=== PATIENT | male | born 1990 | race Caucasian/White ===

== ENCOUNTER 2022-02-02 10:28 | Emergency (ER) | payer SELFPAY ==
[~2022-02-02] VITALS: Ht 182.9 cm; Wt 108.9 kg
[2022-02-02] MEDS ORDERED: LORazepam 2MG/ML-1ML VIAL ONE ×2 (10:39→11:27)
[2022-02-02] MEDS ORDERED: SODIUM CHLORIDE 0.9% 500 ML IVB ONE (12:30)
[2022-02-02] MEDS ORDERED: SODIUM CHLORIDE 0.9% 1,000 ML IV ONE (12:30)
[2022-02-02 14:02] LABS: Albumin 3.1 g/dL (3.4-5.0); Anion Gap 8 (5-15); Blood Urea Nitrogen 16 mg/dL (7-18); Calcium 7.1 mg/dL (8.5-10.1); Carbon Dioxide 19 mmol/L (21-32); Chloride 113 mmol/L (98-107); GFR African American 190 mL/min; GFR Non-African American 157 mL/min; Glucose 92 mg/dL (74-106); Magnesium 1.8 mg/dL (1.6-2.6); Potassium 4.7 mmol/L (3.5-5.1); Sodium 140 mmol/L (136-145)
[2022-02-02 14:10] LABS: Alanine Aminotransferase 27 U/L (16-61); Alkaline Phosphatase 75 U/L (45-117); Aspartate Aminotransferase 35 U/L (15-37); Bilirubin, Total 0.2 mg/dL (0.2-1.0); Blood Alcohol < 3.0 mg/dL (0-5); Total Protein 5.9 g/dL (6.4-8.2)
[2022-02-02] MEDS ORDERED: LORazepam 2MG/ML-1ML VIAL IM ONE ×2 (15:15)
[2022-02-02 15:40] LABS: Basophils # (auto) 0.1 10 ^3/uL (0-0.2); Basophils % (auto) 0.3 % (0.0-2.0); Eosinophils # (auto) 0 10 ^3/uL (0-0.8); Eosinophils % (auto) 0.1 % (0.0-7.0); Hematocrit 45.8 % (41.0-53.0); Hemoglobin 15.4 g/dL (13.5-17.5); Lymphocytes # (auto) 0.7 10 ^3/uL (0.4-5.4); Lymphocytes % (auto) 4.7 % (10.0-50.0); Mean Corpuscular Hemoglobin 31.2 pg (28.0-32.0); Mean Corpuscular Hgb Conc. 33.6 g/dL (32.0-36.0); Mean Corpuscular Volume 92.7 fL (80.0-100.0); Monocytes # (auto) 0.4 10 ^3/uL (0-1.3); Monocytes % (auto) 2.9 % (0.0-12.0); Neutrophils # (auto) 13.4 10 ^3/uL (1.6-8.6); Nucleated Red Blood Cells % 0.1 %; Red Blood Cells 4.93 10^6/uL (4.5-5.90); Red Cell Distribution Width 12.2 % (11.8-14.3); White Blood Cell 14.6 10^3/uL (4.4-10.8)
[2022-02-02] MEDS ORDERED: ACETAMINOPHEN 325 MG TAB PO ONE (20:45)
[2022-02-02 21:51] LABS: Alcohol, Urine < 3.0 mg/dL (0-10); Amphetamine Screen, Urine POSITIVE (NEGATIVE); Barbiturate Scree,Urine NEGATIVE (NEGATIVE); Benzodiazephine Screen, Urine NEGATIVE (NEGATIVE); Cannabinoid Screen, Urine NEGATIVE (NEGATIVE); Cocaine Screen, Urine NEGATIVE (NEGATIVE); Opiate Scree,Urine NEGATIVE (NEGATIVE); Phencyclidine Screen, Urine NEGATIVE (NEGATIVE)
[2022-02-02 22:08] LABS: Urine Bacteria NONE SEEN /hpf (None Seen); Urine Blood Negative /uL (Negative); Urine Specific Gravity 1.024 (1.001-1.035); Urine WBC 1 /hpf (0 - 3)
[2022-02-03 10:00] VITALS: BP 113/72
[2022-02-03] MEDS ORDERED: KEP500T PO (10:05)
== END 2022-02-03 11:34 | disposition home or self-care (01) ==
LOC: EDBD 10:28 → ER 10:28
DX: G40.802 Other epilepsy, not intractable, without status epilepticus (principal); Z89.611 Acquired absence of right leg above knee
CPT/HCPCS: 36415; 70450; 71045; 80053; 80307; 80320; 81001; 83735; 84443; 85025; 93005; 96365; 96372; 99285; J1953; J2060; J7030; J7060

== ENCOUNTER 2022-04-01 15:04 | Emergency (ER) | payer SELFPAY ==
[~2022-04-01] VITALS: Ht 182.9 cm; Wt 92.8 kg
[~2022-04-01 15:04] MED LIST: KEP500T PO
[2022-04-01 21:13] VITALS: BP 129/82
[2022-04-01] MEDS ORDERED: KEP500T PO (21:18)
== END 2022-04-01 21:22 | disposition home or self-care (01) ==
LOC: ER 15:06
DX: R56.9 Unspecified convulsions (principal); Z76.0 Encounter for issue of repeat prescription

== ENCOUNTER 2022-05-06 15:02 | Emergency (ER) | payer MEDICAID ==
[~2022-05-06] VITALS: Ht 185.4 cm; Wt 200.0 kg
[2022-05-06] MEDS ORDERED: KEP500T PO (15:19)
[2022-05-06 16:00] VITALS: BP 147/87
== END 2022-05-06 15:24 | disposition home or self-care (01) ==
LOC: ER 15:02
DX: G40.909 Epilepsy, unspecified, not intractable, without status epilepticus (principal); Z76.0 Encounter for issue of repeat prescription

== ENCOUNTER 2022-08-07 15:00 | Emergency (ER) | payer MEDICAID ==
[~2022-08-07] VITALS: Ht 177.8 cm; Wt 92.5 kg
[2022-08-07 17:14] VITALS: BP 141/85
[2022-08-07] MEDS ORDERED: LEVE500T32 PO (17:34)
== END 2022-08-07 17:44 | disposition home or self-care (01) ==
LOC: ER 15:00
DX: R56.9 Unspecified convulsions (principal); Z76.0 Encounter for issue of repeat prescription

== ENCOUNTER 2022-11-11 14:48 | Emergency (ER) | payer MEDICAID ==
[~2022-11-11] VITALS: Ht 182.9 cm; Wt 92.0 kg
[~2022-11-11 14:48] MED LIST changes: +LEVE500T32 PO
[2022-11-11] MEDS ORDERED: KEP500T PO (16:22)
[2022-11-11 19:35] VITALS: BP 141/78
== END 2022-11-11 19:48 | disposition home or self-care (01) ==
LOC: ER 14:48
DX: G40.909 Epilepsy, unspecified, not intractable, without status epilepticus (principal); Z76.0 Encounter for issue of repeat prescription; Z98.890 Other specified postprocedural states

== ENCOUNTER 2024-06-21 14:19 | Emergency (ER) | payer OTHER, MEDICAID ==
[~2024-06-21] VITALS: Ht 182.9 cm; Wt 68.1 kg
[~2024-06-21 14:19] MED LIST changes: -LEVE500T32 PO; +LEVE500T40 PO
[2024-06-21 15:46] LABS: Amphetamine Screen, Urine Neg (NEGATIVE); Barbiturate Scree,Urine Neg (NEGATIVE); Benzodiazephine Screen, Urine Neg (NEGATIVE); Cocaine Screen, Urine Neg (NEGATIVE)
[2024-06-21 15:47] LABS: Cannabinoid Screen, Urine Neg (NEGATIVE); Opiate Scree,Urine Neg (NEGATIVE); Phencyclidine Screen, Urine Neg (NEGATIVE)
[2024-06-21 15:47] LABS: Basophils # (auto) 0 10 ^3/uL (0-0.2); Basophils % (auto) 0.2 % (0.0-2.0); Eosinophils # (auto) 0.3 10 ^3/uL (0-0.8); Eosinophils % (auto) 2.2 % (0.0-7.0); Hematocrit 45.8 % (41.0-53.0); Lymphocytes # (auto) 1.4 10 ^3/uL (0.4-5.4); Lymphocytes % (auto) 12.3 % (10.0-50.0); Mean Corpuscular Hemoglobin 32.8 pg (28.0-32.0); Mean Corpuscular Hgb Conc. 34.9 g/dL (32.0-36.0); Mean Corpuscular Volume 94.1 fL (80.0-100.0); Monocytes # (auto) 0.7 10 ^3/uL (0-1.3); Monocytes % (auto) 5.8 % (0.0-12.0); Neutrophils % (auto) 79.5 % (37.0-80.0); Nucleated Red Blood Cells % 0.1 %; Platelet Count (auto) 226 10^3/uL (140-450); Red Blood Cells 4.87 10^6/uL (4.5-5.90); Red Cell Distribution Width 12.6 % (11.8-14.3); White Blood Cell 11.3 10^3/uL (4.4-10.8)
[2024-06-21 16:02] LABS: Chloride 108 mmol/L (98-107); Potassium 3.9 mmol/L (3.5-5.1); Sodium 140 mmol/L (136-145)
[2024-06-21 16:03] LABS: Anion Gap 3 (5-15); Carbon Dioxide 29 mmol/L (20-31)
[2024-06-21 16:04] LABS: Calcium 9.9 mg/dL (8.7-10.4)
[2024-06-21 16:08] LABS: Glucose 101 mg/dL (74-106)
[2024-06-21 16:09] LABS: BUN/Creatinine Ratio 16.3 (10.0-20.0); Blood Alcohol < 3.0 mg/dL (<10); Blood Urea Nitrogen 15 mg/dL (9-23)
--- NOTE | 2024-06-21 16:12 | ED.PDOC ---
History of Present Illness HPI Comments 33-year-old male who comes in with chief complaint of anxious and somewhat upset. The patient brought in by paramedics with three-point restraints. The [facility] The patient states that he got very upset with the [facility] and he got so upset that he actually wrapped a television cord around his neck. He had to be restrained by his staff and then 911 was called and the patient was transported to our facility. Chief Complaint: Suicidal Time Seen by MD: 14:26 Primary Care Provider: UNKNOWN Reviewed Notes: Nurses Notes (Davy), Artificial Leather Calender Operator Notes, Medications, Allergies Allergies: Coded Allergies: NO KNOWN ALLERGIES (Unverified , 02/02/22) Home Meds Active Scripts Levetiracetam (KEPPRA TABLET) 500 Mg Tb, 500 MG PO BID for 60 Days, #120 TAB Prov:HARDIK ABDIP 11/11/22 Levetiracetam (Keppra) 500 Mg Tab, 1 TAB PO BID, #120 TAB Prov:THALIA BARONE 08/07/22 Levetiracetam (KEPPRA TABLET) 500 Mg Tb, 500 MG PO BID for 30 Days, #60 TAB Prov:LOIDA ADAMS MD 05/06/22 Levetiracetam (KEPPRA TABLET) 500 Mg Tb, 500 MG PO BID for 30 Days, #60 TAB 0 Refills Prov:PRADIP CORBETT 04/01/22 Levetiracetam (KEPPRA TABLET) 500 Mg Tb, 500 MG PO BID for 30 Days, #60 TAB Prov:YARI DYER MD 02/03/22 Information Source: Patient, Emergency Med Personnel Mode of Arrival: EMS Severity: Mild Timing: Hours Duration: Since onset Prehospital treatment: Restraints Associated signs and symptoms The patient was suffered abrasions to the facial area and then also had three point restraints placed Past Medical History PAST MEDICAL HISTORY: Seizures Past Medical History (Other): Bipolar disorder Surgical History: AKA (Right AKA) Surgical History (Other): Multiple extremity surgeries Family History Family History: Unknown Social History Smoker: Cigarettes Alcohol: Occasionally Drugs: Marijuana Lives In: Home Constitutional: denies: chills, diaphoresis, fatigue, fever, malaise, sweats, weakness, others EENTM: denies: blurred vision, double vision, ear bleeding, ear discharge, ear drainage, ear pain, ear ringing, eye pain, eye redness, hearing loss, mouth pain, mouth swelling, nasal discharge, nose bleeding, nose congestion, nose pain, photophobia, tearing, throat pain, throat swelling, voice changes, others Respiratory: denies: cough, hemoptysis, orthopnea, SOB at rest, shortness of breath, SOB with excertion, stridor, wheezing, others Cardiovascular: denies: chest pain, dizzy spells, diaphoresis, Dyspnea on exertion, edema, irregular heart beat, left arm pain, lightheadedness, palpitations, PND, syncope, others Gastrointestinal: denies: abdomen distended, abdominal pain, blood streaked bowels, constipated, diarrhea, dysphagia, difficulty swallowing, hematemesis, melena, nausea, poor appetite, poor fluid intake, rectal bleeding, rectal pain, vomiting, others Genitourinary: denies: burning, dysuria, flank pain, frequency, hematuria, incontinence, penile discharge, penile sore, pain, testicle pain, testicle swelling, urgency, others Neurological: denies: dizziness, fainting, headache, left sided numbness, left sided weakness, numbness, paresthesia, pre-existing deficit, right sided numbness, right sided weakness, seizure, speech problems, tingling, tremors, weakness, others Musculoskeletal: denies: back pain, gout, joint pain, joint swelling, muscle pain, muscle stiffness, neck pain, others Integumetry: denies: bruises, change in color, change in hair/nails, dryness, laceration, lesions, lumps, rash, wounds, others Allergic/Immunocompromised: denies: Difficulty Healing, Frequent Infections, Hives, Itching, others Hematologic/Lymphatic: denies: anemia, blood clots, easy bleeding, easy bruising, swollen glands, others Endocrine: denies: excessive hunger, excessive sweating, excessive thirst, excessive urination, flushing, intolerance to cold, intolerance to heat, unexplained weight gain, unexplained weight loss, others Psychiatric: reports: anxiety, suicidal; denies: bipolar disorder, depression, hopeless, panic disorder, schizophrenia, sleepless, others Physical Exam General Appearance: Mild Distress HEENT: Normal ENT Inspection, Pharynx Normal, TMs Normal Neck: Full Range of Motion, Non-Tender, Normal, Normal Inspection Respiratory: Chest Non-Tender, Lungs Clear, No Accessory Muscle Use, No Respiratory Distress, Normal Breath Sounds Cardiovascular: No Edema, No JVD, No Murmur, No Gallop, Normal Peripheral Pulses, Regular Rate/Rhythm Breast Exam: Deferred Gastrointestinal: No Organomegaly, Non Tender, No Pulsatile Mass, Normal Bowel Sounds, Soft Genitalia: Deferred Pelvic: Deferred Rectal: Deferred Extremities: No calf tenderness, Normal capillary refill, No pedal edema, Other (The patient was right AKA) Musculoskeletal : Apperance: Normal Neurologic: Alert, information assurance analyst II-XII nml as Tested, No Motor Deficits, No Sensory Deficits, Other (The patient was somewhat anxious and states that he is suicidal) Cerebellar Function: Normal Reflexes: Normal Skin: Dry, Normal Color, Warm Lymphatic: No Adenopathy Was a procedure done? Was a procedure done?: No Differential Dx Considerations may include: Generalized weakness, electrolyte imbalance, dehydration, anxiety, bipolar disorder X-Ray, Labs, Meds, VS Vital Signs Date Time Temp Pulse Resp B/P (MAP) Pulse Ox O2 Delivery O2 Flow Rate FiO2 06/21/24 14:25 98.3 97 18 117/79 (92) 98 Lab Test 06/21/24 15:23 06/21/24 15:22 06/21/24 14:00 Range/Units White Blood Count 11.3 H 4.4-10.8 10^3/uL Red Blood Count 4.87 4.5-5.90 10^6/uL Hemoglobin 16.0 13.5-17.5 g/dL Hematocrit 45.8 41.0-53.0 % Mean Corpuscular Volume 94.1 80.0-100.0 fL Mean Corpuscular Hemoglobin 32.8 H 28.0-32.0 pg Mean Corpuscular Hemoglobin Concent 34.9 32.0-36.0 g/dL Red Cell Distribution Width 12.6 11.8-14.3 % Platelet Count 226 140-450 10^3/uL Mean Platelet Volume 7.6 6.9-10.8 fL Neutrophils (%) (Auto) 79.5 37.0-80.0 % Lymphocytes (%) (Auto) 12.3 10.0-50.0 % Monocytes (%) (Auto) 5.8 0.0-12.0 % Eosinophils (%) (Auto) 2.2 0.0-7.0 % Basophils (%) (Auto) 0.2 0.0-2.0 % Neutrophils # (Auto) 9.0 H 1.6-8.6 10 ^3/uL Lymphocytes # (Auto) 1.4 0.4-5.4 10 ^3/uL Monocytes # (Auto) 0.7 0-1.3 10 ^3/uL Eosinophils # (Auto) 0.3 0-0.8 10 ^3/uL Basophils # (Auto) 0 0-0.2 10 ^3/uL Nucleated Red Blood Cells 0.1 % Sodium Level 140 136-145 mmol/L Potassium Level 3.9 3.5-5.1 mmol/L Chloride Level 108 H 98-107 mmol/L Carbon Dioxide Level 29 20-31 mmol/L Anion Gap 3 L 5-15 Blood Urea Nitrogen 15 9-23 mg/dL Creatinine 0.92 0.700-1.30 mg/dL Glomerular Filtration Rate Calc 114 >90 mL/min BUN/Creatinine Ratio 16.3 10.0-20.0 Serum Glucose 101 74-106 mg/dL Calcium Level 9.9 8.7-10.4 mg/dL Plasma/Serum Blood Alcohol < 3.0 <10 mg/dL Urine Opiates Screen Neg NEGATIVE Urine Fentanyl Screen Neg NEGATIVE Urine Barbiturates Screen Neg NEGATIVE Urine Phencyclidine Screen Neg NEGATIVE Urine Amphetamines Screen Neg NEGATIVE Urine Benzodiazepines Screen Neg NEGATIVE Urine Cocaine Screen Neg NEGATIVE Urine Cannabinoids Screen Neg NEGATIVE Levetiracetam Level Pending The patient's CBC shows an elevated white blood cell count of 11.3 The rest of the CBC is within normal limits The chemistry panel is within normal limits. The urine tox is negative At this time, the patient was having a telemedicine psychiatry consult We did speak with Dr. Kay who is a psychiatrist The patient will be placed on a 5150 hold We will work on getting a bed for the patient to be transferred to at some point In the meantime, the patient was being given Zoloft 50 mg q.a.m.. The patient was also given Keppra 1000 mg p.o. for his seizures Time of 1ST Reevaluation: 17:54 Reevaluation 1ST: Unchanged Patient Education/Counseling: Diagnosis, Treatment, Prognosis Family Education/Counseling: No Family Present Departure 1 Departure Time of Disposition: 19:45 Impression: Primary Impression: Suicidal ideation Disposition: 30 STILL A PATIENT Condition: Fair Critical Care Note Critical Care Time?: No Stability Stability form required: No Heart Score Heart Score: Heart Score Response (Comments) Value History N/A 0 EKG N/A 0 Age N/A 0 Risk Factors N/A 0 Troponin N/A 0 Total 0 LOIDA ADMAS MD Jun 21, 2024 16:12
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
[2024-06-21] MEDS ORDERED: levETIRAcetam 500 MG TAB PO ONE (20:45)
[2024-06-21] MEDS: MELATONIN 5 MG TAB PO PRN (21:40)
[2024-06-21] MEDS: levETIRAcetam 500 MG TAB PO SCH (21:40)
[2024-06-21] MEDS: SERTRALINE HCL 50 MG TAB PO ONE (21:40)
[2024-06-22] MEDS: NICOTINE 7MG/24HR TOPICAL PATCH TD ONE (07:12)
[2024-06-22 10:21] VITALS: PULSE 75; RESP 16; O2SAT 98
[2024-06-23 07:30] VITALS: PULSE 75; RESP 16; O2SAT 98
[2024-06-23] MEDS: ONDANSETRON ODT 4 MG TAB PO ONE (07:59)
[2024-06-23] MEDS: METOCLOPRAMIDE HCL 10 MG TAB PO ONE (09:18)
[2024-06-23] MEDS: SODIUM CHLORIDE 0.9% 500 ML IV ONE (11:32)
[2024-06-23] MEDS: ONDANSETRON HCL 4 MG/2 ML VIAL IV ONE (11:32)
[2024-06-23] MEDS: ONDANSETRON HCL 4 MG/2 ML VIAL IM ONE (18:54)
[2024-06-23 19:30] VITALS: PULSE 112; RESP 16; O2SAT 97
[2024-06-24 07:30] VITALS: PULSE 112; RESP 16; O2SAT 97
[2024-06-24] MEDS: ONDANSETRON ODT 4 MG TAB PO ONE (09:32)
--- NOTE | 2024-06-24 22:11 | ED.PDOC ---
Departure 1 Departure Time of Disposition: 22:10 (Patient has I will hold a still pending placement. Patient is physically doing okay however patient appears a bit agitated and we will medicate the patient for sleep.) Impression: Primary Impression: Suicidal ideation Disposition: 30 STILL A PATIENT Condition: KAYLA Jj MD Jun 24, 2024 22:11
[2024-06-25] MEDS: levETIRAcetam 500 MG TAB ONE (08:00)
--- NOTE | 2024-06-25 09:19 | DVHINCON2 ---
Date of service: Jun 25, [address] Remy Gastelum Reason for Consultation Medication management and disposition. History of Present Illness Chief complaint: "I was tired". Interval history: This is a 33-year-old male who was seen for follow-up via telepsychiatry. Patient was not fully cooperative with the interview. Patient reported that he has been feeling depressed. He reported having trouble sleeping, energy level is low, has trouble concentrating and his appetite is decreased. He denied any current suicidal or homicidal ideation. He denied any auditory or visual hallucination. He denied any paranoia. Past Medical History As per history and physical. Past Surgical History As per history and physical. Allergies: Coded Allergies: NO KNOWN ALLERGIES (Unverified , 02/02/22) Home Meds Active Scripts Levetiracetam (KEPPRA TABLET) 500 Mg Tb, 500 MG PO BID for 60 Days, #120 TAB Prov:HARDIK ABDI [employer] E[employer] PAR[employer]GAL 11/11/22 Levetiracetam (Keppra) 500 Mg Tab, 1 TAB PO BID, #120 TAB Prov:THALIA BARONE PAC 08/07/22 Levetiracetam (KEPPRA TABLET) 500 Mg Tb, 500 MG PO BID for 30 Days, #60 TAB Prov:LOIDA ADAMS MD 05/06/22 Levetiracetam (KEPPRA TABLET) 500 Mg Tb, 500 MG PO BID for 30 Days, #60 TAB 0 Refills Prov:PRADIP CORBETT PA 04/01/22 Levetiracetam (KEPPRA TABLET) 500 Mg Tb, 500 MG PO BID for 30 Days, #60 TAB Prov:YARI DYER MD 02/03/22 Review of Systems Review of systems is negative except HPI. Vital Signs Vital Signs Date Time Temp Pulse Resp B/P (MAP) Pulse Ox O2 Delivery O2 Flow Rate FiO2 06/24/24 20:15 Room Air* 0 21 06/24/24 20:00 98.6 73 16 137/74 (95) 98 98.6 Physical Exam Mental status examination: This is a 33 year male who appears to be of his stated age. His grooming is fair. His eye contact is poor. His speech is soft and lacking spontaneity. He describes his mood as "tired" and his affect is constricted. He denied any current suicidal or homicidal ideation. He denied any auditory or visual hallucination. His thought processes disorganized with considerable thought blocking. He is oriented to person only. His attention and concentration is impaired. His memory and language impaired. His judgment and insight is poor. His impulse control is poor. His fund of knowledge is impaired. Labs/Diagnostic Data Labs Test 06/21/24 15:23 06/21/24 15:22 06/21/24 14:00 Range/Units White Blood Count 11.3 H 4.4-10.8 10^3/uL Red Blood Count 4.87 4.5-5.90 10^6/uL Hemoglobin 16.0 13.5-17.5 g/dL Hematocrit 45.8 41.0-53.0 % Mean Corpuscular Volume 94.1 80.0-100.0 fL Mean Corpuscular Hemoglobin 32.8 H 28.0-32.0 pg Mean Corpuscular Hemoglobin Concent 34.9 32.0-36.0 g/dL Red Cell Distribution Width 12.6 11.8-14.3 % Platelet Count 226 140-450 10^3/uL Mean Platelet Volume 7.6 6.9-10.8 fL Neutrophils (%) (Auto) 79.5 37.0-80.0 % Lymphocytes (%) (Auto) 12.3 10.0-50.0 % Monocytes (%) (Auto) 5.8 0.0-12.0 % Eosinophils (%) (Auto) 2.2 0.0-7.0 % Basophils (%) (Auto) 0.2 0.0-2.0 % Neutrophils # (Auto) 9.0 H 1.6-8.6 10 ^3/uL Lymphocytes # (Auto) 1.4 0.4-5.4 10 ^3/uL Monocytes # (Auto) 0.7 0-1.3 10 ^3/uL Eosinophils # (Auto) 0.3 0-0.8 10 ^3/uL Basophils # (Auto) 0 0-0.2 10 ^3/uL Nucleated Red Blood Cells 0.1 % Sodium Level 140 136-145 mmol/L Potassium Level 3.9 3.5-5.1 mmol/L Chloride Level 108 H 98-107 mmol/L Carbon Dioxide Level 29 20-31 mmol/L Anion Gap 3 L 5-15 Blood Urea Nitrogen 15 9-23 mg/dL Creatinine 0.92 0.700-1.30 mg/dL Glomerular Filtration Rate Calc 114 >90 mL/min BUN/Creatinine Ratio 16.3 10.0-20.0 Serum Glucose 101 74-106 mg/dL Calcium Level 9.9 8.7-10.4 mg/dL Plasma/Serum Blood Alcohol < 3.0 <10 mg/dL Urine Opiates Screen Neg NEGATIVE Urine Fentanyl Screen Neg NEGATIVE Urine Barbiturates Screen Neg NEGATIVE Urine Phencyclidine Screen Neg NEGATIVE Urine Amphetamines Screen Neg NEGATIVE Urine Benzodiazepines Screen Neg NEGATIVE Urine Cocaine Screen Neg NEGATIVE Urine Cannabinoids Screen Neg NEGATIVE Assessment Patient with a 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 Patient had attempted suicide by trying to strangulate himself with the television cord. Plan/Recommendation I will recommend to continue 5150 hold and transferred to inpatient psychiatric level of care. I will start him on Zoloft 50 mg p.o. daily. Care was coordinated with the patient and his RN. Plan discussed with: Patient JODI PADILLA MD Jun 25, 2024 09:19
[2024-06-25] MEDS: SERTRALINE HCL 50 MG TAB PO SCH (11:35)
[2024-06-25] MEDS: LORazepam 2MG/ML-1ML VIAL IM ONE (11:50)
[2024-06-25 19:38] VITALS: PULSE 91; RESP 18; O2SAT 96
--- NOTE | 2024-06-25 19:53 | ED.PDOC ---
Departure 1 Departure Time of Disposition: 19:52 (Patient was re-evaluated by Psychiatry today. They were recommend continuing a 5150 hold for inpatient psychiatric treatment. Patient appears to be resting comfortably while in the emergency room at this time. Exam is unchanged from prior. We will continue to wait for placement.) Impression: Primary Impression: Suicidal ideation Disposition: 30 STILL A PATIENT Condition: KAYLA Jj MD Jun 25, 2024 19:53
[2024-06-26 08:00] VITALS: PULSE 81; RESP 14; O2SAT 95
[2024-06-26] MEDS: ONDANSETRON ODT 4 MG TAB PO ONE (18:30)
[2024-06-26 19:34] VITALS: PULSE 84; RESP 16; O2SAT 96
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
--- NOTE | 2024-06-27 04:47 | ED.PDOC ---
Departure 1 Departure Time of Disposition: 04:47 (Patient was re-evaluated again by psychiatry today. She will recommending transfer to inpatient facility. We are still waiting placement. Patient is resting comfortably in the ER.) Impression: Primary Impression: Suicidal ideation Disposition: 30 STILL A PATIENT Condition: KAYLA Jj MD Jun 27, 2024 04:47
[2024-06-27 07:30] VITALS: PULSE 82; RESP 14; O2SAT 98
--- NOTE | 2024-06-28 17:46 | TELE.CONS ---
06/28/241729 The patient was seen and evaluated at [facility] ED via telepsychiatry platform. 33 yr old male was seen by psychiatrist Dr Kay on 06/21 and recommended for inpatient hospitalization. He was seen by Dr Vazquez on 06/[address] Mart on 06/27 and reported feeling like he would harm other residents or staff if he was returned to his fci. He feels that living on the streets is better than living in the fci and feels the place makes him feel aggressive and more depressed. He reported feeling like he couldn't survive on the streets as he feels low energy, low motivation and depressed most of the time. He was started on Zoloft 50mg in the ED and has been taking that without adverse effects. He reported having difficulty sleeping in the chair in the ED. He denied having SI/AVH. MSE: Alert, oriented male sitting in bed cooperative and forthcoming speech-pressured Some rocking back and forward Mood-"anxious" Affect-Anxious, congruent Tht process-linear and goal directed Tht Content-Persistent thoughts of hurting his residents and staff at his fci. Denied having suicidal ideation, plan or intent. denied AVH Insight-Poor Judgment-poor Impulse control-intact Diagnosis: UNSPECIFIED DEPRESSIVE DISORDER Assessment: This 33 yr old male appears to suffer from depression and remains hopeless and feels like he would hurt someone if returned to his residence. He is a high risk for harm and would benefit from admission to [facility]. He meets criteria for involuntary hospitalization on basis of danger to others and agrees to voluntary hospitalization. Plan: 1. Transfer to behavioral health unit when bed available. 2. Legal-voluntary, but meets criteria for involuntary hold on basis of danger to others. 3. Medications- Continue Zoloft 50mg qam. Start Trazodone 100mg qhs for sleep. 4. Case discussed with ED RN Lew Milan. 5. Please contact psychiatry if further follow up or reevaluation is desired. Yes ALIZA KAY MD Jun 28, 2024 17:46
[2024-06-28 19:49] VITALS: RESP 16
[2024-06-28] MEDS: traZODone HCL 50 MG TAB PO ONE (21:27)
[2024-06-29 07:30] VITALS: PULSE 55; RESP 16; O2SAT 97
[2024-06-29 10:58] LABS: Urine Bacteria None Seen /hpf (None Seen)
[2024-06-29 11:18] LABS: Urine Blood Negative /uL (Negative); Urine Clarity Clear (Clear); Urine Color Yellow (Yellow); Urine Protein, UAD Negative (Negative); Urine Specific Gravity 1.013 (1.001-1.035); Urine Urobilinogen Normal (Negative); Urine WBC 3 /hpf (0 - 3); Urine pH 5.5 (5.0-9.0)
--- NOTE | 2024-06-29 17:03 | ED.PDOC ---
Departure 1 Departure Time of Disposition: 17:02 (Patient unfortunately still awaiting placement while resting in the ER. Patient's exam is unchanged and patient is still resting comfortably in the emergency room. We will continue to seek placement) Impression: Primary Impression: Suicidal ideation Disposition: 30 STILL A PATIENT Condition: KAYLA Jj MD Jun 29, 2024 17:02
[2024-06-29 18:40] VITALS: BP 111/82; PULSE 85; RESP 16; TEMP 97.9; O2SAT 100
== END 2024-06-29 18:52 | disposition short-term general hospital (02) ==
LOC: EDBD 14:19 → ER 14:19
DX: R45.851 Suicidal ideations (principal); F31.9 Bipolar disorder, unspecified; F17.210 Nicotine dependence, cigarettes, uncomplicated; G40.909 Epilepsy, unspecified, not intractable, without status epilepticus; F43.23 Adjustment disorder with mixed anxiety and depressed mood; Z89.611 Acquired absence of right leg above knee
CPT/HCPCS: 36415; 80048; 80307; 80320; 81001; 82542; 85025; 99285; J2405; J8597; Q0162

== ENCOUNTER 2024-12-31 23:52 | Inpatient (IN) | payer OTHER, MEDICAID ==
[~2024-12-31] VITALS: Ht 182.9 cm; Wt 110.0 kg
[2025-01-01] VITALS (8 sets, daily range): BP systolic 102–103; BP diastolic 45–57; PULSE 78–122; RESP 18–22; TEMP 98.2–101.1; O2SAT 0–100
[2025-01-01 00:35] LABS: Basophils # (auto) 0 10 ^3/uL (0-0.2); Basophils % (auto) 0.1 % (0.0-2.0); Eosinophils # (auto) 0 10 ^3/uL (0-0.8); Lymphocytes # (auto) 0.3 10 ^3/uL (0.4-5.4); Mean Corpuscular Volume 93.4 fL (80.0-100.0); Monocytes # (auto) 0.5 10 ^3/uL (0-1.3)
[2025-01-01 00:36] LABS: Eosinophils % (auto) 0.2 % (0.0-7.0); Hematocrit 53.6 % (41.0-53.0); Hemoglobin 18.9 g/dL (13.5-17.5); Lymphocytes % (auto) 2.3 % (10.0-50.0); Mean Corpuscular Hgb Conc. 35.3 g/dL (32.0-36.0); Monocytes % (auto) 3.8 % (0.0-12.0); Neutrophils # (auto) 11.3 10 ^3/uL (1.6-8.6); Neutrophils % (auto) 93.6 % (37.0-80.0); Platelet Count (auto) 213 10^3/uL (140-450); Red Blood Cells 5.74 10^6/uL (4.5-5.90); White Blood Cell 12.1 10^3/uL (4.4-10.8)
[2025-01-01] MEDS: SODIUM CHLORIDE 0.9% 1,000 ML IV ONE ×2 (00:36→04:00)
[2025-01-01] MEDS: METOCLOPRAMIDE HCL 5MG/ml INJ 2ml VIAL IM ONE (00:36)
[2025-01-01 00:44] LABS: Sodium 140 mmol/L (136-145)
[2025-01-01 00:45] LABS: Anion Gap 8 (5-15); Calcium 9.1 mg/dL (8.7-10.4); Carbon Dioxide 24 mmol/L (20-31)
[2025-01-01 00:50] LABS: BUN/Creatinine Ratio 20.9 (10.0-20.0); Blood Urea Nitrogen 19 mg/dL (9-23)
[2025-01-01 00:55] LABS: Chloride 108 mmol/L (98-107); Glucose 131 mg/dL (74-106)
[2025-01-01 02:06] LABS: COVID19 ANTIGEN SOFIA FIA NEGATIVE (NEGATIVE)
--- NOTE | 2025-01-01 02:31 | ED.PDOC ---
History of Present Illness HPI Comments This patient is a 34-year-old male who arrives the ED via EMS due to a syncopal event and his assisted living facility approximately 1 hour prior to arrival. Patient states he has been sickle day with nausea and vomiting and attempted to get out of his wheelchair into bed when he collapsed and had a loss of c onsciousness event. At time of arrival, patient is smelled of C difficile and had fecal incontinence. Vital signs were stable on arrival. Chief Complaint: Syncope Time Seen by MD: 00:07 Primary Care Provider: UNKNOWN Reviewed Notes: Nurses Notes, Library Assistant Notes Allergies: Coded Allergies: NO KNOWN ALLERGIES (Unverified , 02/02/22) Home Meds Active Scripts Levetiracetam (KEPPRA TABLET) 500 Mg Tb, 500 MG PO BID for 60 Days, #120 TAB Prov:HARDIK ABDI 11/11/22 Levetiracetam (Keppra) 500 Mg Tab, 1 TAB PO BID, #120 TAB Prov:THALIA BARONE 08/07/22 Levetiracetam (KEPPRA TABLET) 500 Mg Tb, 500 MG PO BID for 30 Days, #60 TAB Prov:LOIDA ADAMS MD 05/06/22 Levetiracetam (KEPPRA TABLET) 500 Mg Tb, 500 MG PO BID for 30 Days, #60 TAB 0 Refills Prov:PRADIP CORBETT 04/01/22 Levetiracetam (KEPPRA TABLET) 500 Mg Tb, 500 MG PO BID for 30 Days, #60 TAB Prov:YARI DYER MD 02/03/22 Information Source: Patient, Emergency Med Personnel Mode of Arrival: EMS Severity: Moderate Timing: Hours Duration: Since onset Prehospital treatment: 12 Lead EKG Past Medical History PAST MEDICAL HISTORY: Seizures Surgical History: AKA Surgical History (Other): History of right leg amputation. Family History Family History: Unknown Social History Smoker: Cigarettes Alcohol: Occasionally Drugs: Marijuana Lives In: Home Constitutional: reports: fatigue, weakness; denies: chills, diaphoresis, fever, malaise, sweats, others EENTM: denies: blurred vision, double vision, ear bleeding, ear discharge, ear drainage, ear pain, ear ringing, eye pain, eye redness, hearing loss, mouth pain, mouth swelling, nasal discharge, nose bleeding, nose congestion, nose pain, photophobia, tearing, throat pain, throat swelling, voice changes, others Respiratory: denies: cough, hemoptysis, orthopnea, SOB at rest, shortness of breath, SOB with excertion, stridor, wheezing, others Cardiovascular: denies: chest pain, dizzy spells, diaphoresis, Dyspnea on exertion, edema, irregular heart beat, left arm pain, lightheadedness, palpitations, PND, syncope, others Gastrointestinal: reports: nausea, vomiting; denies: abdomen distended, abdominal pain, blood streaked bowels, constipated, diarrhea, dysphagia, difficulty swallowing, hematemesis, melena, poor appetite, poor fluid intake, rectal bleeding, rectal pain, others Genitourinary: denies: burning, dysuria, flank pain, frequency, hematuria, incontinence, penile discharge, penile sore, pain, testicle pain, testicle swelling, urgency, others Neurological: reports: fainting; denies: dizziness, headache, left sided numbness, left sided weakness, numbness, paresthesia, pre-existing deficit, right sided numbness, right sided weakness, seizure, speech problems, tingling, tremors, weakness, others Musculoskeletal: denies: back pain, gout, joint pain, joint swelling, muscle pain, muscle stiffness, neck pain, others Integumetry: denies: bruises, change in color, change in hair/nails, dryness, laceration, lesions, lumps, rash, wounds, others Allergic/Immunocompromised: denies: Difficulty Healing, Frequent Infections, Hives, Itching, others Hematologic/Lymphatic: denies: anemia, blood clots, easy bleeding, easy bruising, swollen glands, others Endocrine: denies: excessive hunger, excessive sweating, excessive thirst, excessive urination, flushing, intolerance to cold, intolerance to heat, unexplained weight gain, unexplained weight loss, others Psychiatric: denies: anxiety, bipolar disorder, depression, hopeless, panic disorder, schizophrenia, sleepless, suicidal, others Physical Exam General Appearance: Moderate Distress (Patient appears to be moderately ill at time of evaluation.), Normal HEENT: Normal ENT Inspection, Pharynx Normal, TMs Normal Neck: Full Range of Motion, Non-Tender, Normal, Normal Inspection Respiratory: Chest Non-Tender, Lungs Clear, No Accessory Muscle Use, No Respiratory Distress, Normal Breath Sounds Cardiovascular: No Edema, No JVD, No Murmur, No Gallop, Normal Peripheral Pulses, Regular Rate/Rhythm Breast Exam: Deferred Gastrointestinal: No Organomegaly, Non Tender, No Pulsatile Mass, Normal Bowel Sounds, Soft Genitalia: Deferred Pelvic: Deferred Rectal: Deferred Extremities: Other (Right leg [id number] amputation.) Neurologic: Alert, Normal Affect, No Sensory Deficits Cerebellar Function: NOT DONE Reflexes: NOT DONE Skin: Dry, Normal Color, Warm Lymphatic: No Adenopathy Was a procedure done? Was a procedure done?: No Differential Dx Considerations may include: Mom was sepsis, electrolyte abnormality, viral gastroenteritis, COVID-19, influenza, UTI, drug use X-Ray, Labs, Meds, VS Vital Signs Date Time Temp Pulse Resp B/P (MAP) Pulse Ox O2 Delivery O2 Flow Rate FiO2 01/01/25 00:35 98.1 78 18 115/59 (77) 95 98.1 01/01/25 00:35 78 18 95 Room Air* 0 21 12/31/24 23:57 97.6 94 16 112/70 (84) 97 97.6 Lab Test 01/01/25 01:32 01/01/25 00:27 01/01/25 00:11 Range/Units SARS-CoV-2 Antigen (Rapid) Negative NEGATIVE White Blood Count 12.1 H 4.4-10.8 10^3/uL Red Blood Count 5.74 4.5-5.90 10^6/uL Hemoglobin 18.9 H 13.5-17.5 g/dL Hematocrit 53.6 H 41.0-53.0 % Mean Corpuscular Volume 93.4 80.0-100.0 fL Mean Corpuscular Hemoglobin 33.0 H 28.0-32.0 pg Mean Corpuscular Hemoglobin Concent 35.3 32.0-36.0 g/dL Red Cell Distribution Width 13.0 11.8-14.3 % Platelet Count 213 140-450 10^3/uL Mean Platelet Volume 7.5 6.9-10.8 fL Neutrophils (%) (Auto) 93.6 H 37.0-80.0 % Lymphocytes (%) (Auto) 2.3 L 10.0-50.0 % Monocytes (%) (Auto) 3.8 0.0-12.0 % Eosinophils (%) (Auto) 0.2 0.0-7.0 % Basophils (%) (Auto) 0.1 0.0-2.0 % Neutrophils # (Auto) 11.3 H 1.6-8.6 10 ^3/uL Lymphocytes # (Auto) 0.3 L 0.4-5.4 10 ^3/uL Monocytes # (Auto) 0.5 0-1.3 10 ^3/uL Eosinophils # (Auto) 0 0-0.8 10 ^3/uL Basophils # (Auto) 0 0-0.2 10 ^3/uL Nucleated Red Blood Cells 0.0 % Sodium Level 140 136-145 mmol/L Potassium Level 4.0 3.5-5.1 mmol/L Chloride Level 108 H 98-107 mmol/L Carbon Dioxide Level 24 20-31 mmol/L Anion Gap 8 5-15 Blood Urea Nitrogen 19 9-23 mg/dL Creatinine 0.91 0.700-1.30 mg/dL Glomerular Filtration Rate Calc 115 >90 mL/min BUN/Creatinine Ratio 20.9 H 10.0-20.0 Serum Glucose 131 H 74-106 mg/dL Calcium Level 9.1 8.7-10.4 mg/dL POC Glucose 159 H 70-106 mg/dl Current Medications Medications (Trade) Dose Ordered Sig/Howard Route Start Time Stop Time Status Last Admin Metoclopramide HCl (Reglan Injection) 10 mg ONCE ONCE IM 01/01/25 00:15 01/01/25 00:16 DC 01/01/25 00:36 Sodium Chloride 1,000 ml @ 1,000 mls/hr Q1H ONCE IV 01/01/25 00:15 01/01/25 01:14 DC 01/01/25 00:36 X-Ray, Labs, Meds, VS Comment All studies performed the ED were evaluated by me personally. Urinalysis was pending at time of this note. Laboratories remarkable for a mild leukocytosis with a left shift. This patient appears to be progressing into a more significant illness and therefore, due to his assisted living facility minimal support, patient will be admitted for evaluation of stool culture and urinalysis as well as fecal incontinence. Patient has a rectal tube in place. Time of 1ST Reevaluation: 02:30 Reevaluation 1ST: Improved Consultation: PCP Patient Education/Counseling: Diagnosis, Treatment Family Education/Counseling: Diagnosis, Treatment Departure 1 Departure Time of Disposition: 02:31 Impression: Primary Impression: Gastroenteritis Additional Impressions: Fecal incontinence Leukocytosis Disposition: ADMITTED INPATIENT Condition: Fair Discharged With: Self Critical Care Note Critical Care Time?: No Stability Stability form required: No Heart Score Heart Score: Heart Score Response (Comments) Value History N/A 0 EKG N/A 0 Age N/A 0 Risk Factors N/A 0 Troponin N/A 0 Total 0 THALIA BARONE PAC January 01, 2025 02:31
[2025-01-01] MEDS ORDERED: SODIUM CHLORIDE 0.9% 1,000 ML IV SCH (03:15)
[2025-01-01] MEDS ORDERED: ONDANSETRON HCL 4 MG/2 ML VIAL IV PRN (03:15)
--- NOTE | 2025-01-01 03:34 | DVHHP2 ---
History of Present Illness History of Present Illness Patient started 4 years old male with a history of seizure disorder, depression was brought in from a half-way facility due to syncope reviewed patient is poorly compliant with the history and physical. Patient denied to give a detailed history, patient was noncompliant with giving a details history. also denied physical examination. Per patient he had nausea and vomiting for the day so many times, watery, no blood. Patient also endorsed diarrhea several times, watery no blood. Patient also reported that when he tried to get up from his wheelchair he passed out, patient had post syncope fecal incontinence. Initial lab workup revealed leukocytosis with WBC is 12.1, neutrophils 93.6%, hemoglobin 8.9. Past Medical History Seizure disorder, depression Past Surgical History Right leg surgery following an accident Past Social History Smoker/occasional alcoholic, use marijuana Review of Systems Review of Systems Details of the other system could not be taken as patient was noncompliant with details thorough history taking. Allergies: Coded Allergies: NO KNOWN ALLERGIES (Unverified , 02/02/22) Medications Current Medications Medications Dose Ordered Sig/Howard Route Start Time Stop Time Status Last Admin Dose Admin Sodium Chloride 10 ml Q8HR IV 01/01/25 06:00 Ondansetron HCl 4 mg Q4HP PRN IV 01/01/25 03:15 Enoxaparin Sodium 40 mg DAILY SC 01/01/25 10:00 Folic Acid 1 mg/ Magnesium Sulfate 8 meq/ Multivitamins 10 ml/Thiamine HCl 100 mg/Sodium Chloride 1,013.2 ml @ 126.247 mls/hr DAILY@1800 INJ 01/01/25 18:00 Ceftriaxone Sodium 50 ml @ 100 mls/hr DAILY@09 IV 01/02/25 09:00 Metronidazole 100 ml @ 100 mls/hr Q8HR IV 01/01/25 14:00 Pantoprazole Sodium 40 mg DAILY IV 01/01/25 10:00 Thiamine HCl 100 mg DAILY IV 01/01/25 10:00 Folic Acid 1 mg/ Dextrose 50.2 ml @ 200.8 mls/ hr DAILY INJ 01/01/25 10:00 Levetiracetam 100 ml @ 400 mls/hr BID IV 01/01/25 10:00 Sodium Chloride 1,000 ml @ 125 mls/hr Q8H IV 01/01/25 03:30 Exam Vital Signs Vital Signs Date Time Temp Pulse Resp B/P (MAP) Pulse Ox O2 Delivery O2 Flow Rate FiO2 01/01/25 00:35 98.1 78 18 115/59 (77) 95 98.1 01/01/25 00:35 Room Air* 0 21 Exam Patient refused General examination- Labs/Xrays Labs Test 01/01/25 02:19 01/01/25 01:32 01/01/25 00:27 01/01/25 00:11 Range/Units SARS-CoV-2 Antigen (Rapid) Negative NEGATIVE White Blood Count 12.1 H 4.4-10.8 10^3/uL Red Blood Count 5.74 4.5-5.90 10^6/uL Hemoglobin 18.9 H 13.5-17.5 g/dL Hematocrit 53.6 H 41.0-53.0 % Mean Corpuscular Volume 93.4 80.0-100.0 fL Mean Corpuscular Hemoglobin 33.0 H 28.0-32.0 pg Mean Corpuscular Hemoglobin Concent 35.3 32.0-36.0 g/dL Red Cell Distribution Width 13.0 11.8-14.3 % Platelet Count 213 140-450 10^3/uL Mean Platelet Volume 7.5 6.9-10.8 fL Neutrophils (%) (Auto) 93.6 H 37.0-80.0 % Lymphocytes (%) (Auto) 2.3 L 10.0-50.0 % Monocytes (%) (Auto) 3.8 0.0-12.0 % Eosinophils (%) (Auto) 0.2 0.0-7.0 % Basophils (%) (Auto) 0.1 0.0-2.0 % Neutrophils # (Auto) 11.3 H 1.6-8.6 10 ^3/uL Lymphocytes # (Auto) 0.3 L 0.4-5.4 10 ^3/uL Monocytes # (Auto) 0.5 0-1.3 10 ^3/uL Eosinophils # (Auto) 0 0-0.8 10 ^3/uL Basophils # (Auto) 0 0-0.2 10 ^3/uL Nucleated Red Blood Cells 0.0 % Sodium Level 140 136-145 mmol/L Potassium Level 4.0 3.5-5.1 mmol/L Chloride Level 108 H 98-107 mmol/L Carbon Dioxide Level 24 20-31 mmol/L Anion Gap 8 5-15 Blood Urea Nitrogen 19 9-23 mg/dL Creatinine 0.91 0.700-1.30 mg/dL Glomerular Filtration Rate Calc 115 >90 mL/min BUN/Creatinine Ratio 20.9 H 10.0-20.0 Serum Glucose 131 H 74-106 mg/dL Calcium Level 9.1 8.7-10.4 mg/dL POC Glucose 159 H 70-106 mg/dl Assessment/Plan Assessment/Plan Assessment and plan Syncope likely orthostatic, rule out cardiac arrhythmia/orthostatic/TIA/seizure Acute gastroenteritis Suspected marijuana induced intractable nausea and vomiting Intractable nausea and vomiting Substance abuse marijuana History of alcoholism History of seizure disorder Leukocytosis likely due to acute gastroenteritis Plan Ordered CT head without contrast Ordered echo 2D Ordered carotid Doppler Continue IV fluid as prescribed Ordered ceftriaxone and metronidazole Ordered pantoprazole Pending stool for Clostridium difficile, stool for WBC, stool culture Ordered banana bag, folic acid and thiamine Monitor vitals Goals of care, Code status ; discussed with >15 minutes PUD prophylaxis: Pantoprazole DVT prophylaxis: Lovenox Plan discussed with Dr. Serra , nursing staff, Total time spent on patient evaluation, chart review, assessment and plan, discussion discussion >35 minutes Plan discussed with: Patient, Other (RN) My Orders Orders - LEYLA PEREA RESIDENT Procedure Category Date Status Time Admit ADMIT 01/01/25 Transmitted 03:11 Code Status CODE 01/01/25 Transmitted 03:11 Sodium Chloride Lock PHA 01/01/25 In Process (Saline Lock Ns) 06:00 Ondansetron Hcl PHA 01/01/25 In Process (Zofran) 03:15 Enoxaparin Sodium PHA 01/01/25 In Process (Lovenox) 10:00 Complete Blood Count LAB 01/02/25 Verified 04:00 Comprehensive LAB 01/02/25 Verified Metabolic Panel 04:00 Npo (Nothing By DIET 01/01/25 Transmitted Mouth) Diet Breakfast Notify Of Changes MOIZ 01/01/25 In Process From Base 03:11 Maintenance Engineer For MOIZ 01/01/25 In Process 24 Hours 03:11 Folic Acid... PHA 01/01/25 In Process 18:00 Ceftriaxone 1gm/50ml PHA 01/01/25 In Process D5w (Rocephin) 03:15 Metronidazole PHA 01/01/25 In Process 500mg/100ml (Flagyl 03:15 Metronidazole PHA 01/01/25 In Process 500mg/100ml (Flagyl 14:00 Pantoprazole PHA 01/01/25 In Process (Protonix) 10:00 Thiamine Inj PHA 01/01/25 In Process 10:00 Folic Acid PHA 01/01/25 In Process 10:00 Folic Acid PHA 01/01/25 In Process 03:15 Stool Wbc LAB 01/01/25 Logged 03:18 Stool Bacterial FRANCISCO 01/01/25 Logged Culture 03:18 Levetiracetam 500 PHA 01/01/25 In Process Mg/100ml (Levetiraceta 10:00 Levetiracetam 500 PHA 01/01/25 In Process Mg/100ml (Levetiraceta 03:30 Ceftriaxone 1gm/50ml PHA 01/02/25 In Process D5w (Rocephin) 09:00 Orthostatic Vital ED NURSING 01/01/25 Transmitted Signs Sodium Chloride 0.9% PHA 01/01/25 In Process 03:30 Sodium Chloride 0.9% PHA 01/01/25 In Process 03:30 Electrocardigram EKG 01/01/25 Logged 03:23 Thyroid Stimulating LAB 01/01/25 Logged Hormone 03:23 Comprehensive LAB 01/01/25 Logged Metabolic Panel 04:00 Complete Blood Count LAB 01/01/25 Logged 04:00 Blood Alcohol LAB 01/01/25 Logged 03:24 Date of Service: January 01, 2025 Billing Provider: HOLLI SERRA MD Common Visit Codes: 60577-MFFRIME INP/OBS CARE (HIGH) Secondary Visit Codes: 29305-KOMMRVPG CARE PLAN 30 MINUTES LEYLA PEREA RESIDENT January 01, 2025 03:34
[2025-01-01 03:40] LABS: Rapid Influenza A Negative (Negative); Rapid Influenza B Negative (Negative)
[2025-01-01] MEDS: SODIUM CHLORIDE 0.9% 1,000 ML IV SCH (04:00)
[2025-01-01] MEDS: FOLIC ACID 1 MG in D5W 5% 50 ML INJ ONE (04:20)
[2025-01-01] MEDS: PANTOPRAZOLE 40 MG/10 ML VIAL INJ IV ONE (04:28)
[2025-01-01] MEDS: levETIRAcetam 500 mg/100ml 100 ML IV ONE (04:28)
[2025-01-01] MEDS: THIAMINE 100mg/ml INJ (200mg/2ml VIAL) IV ONE (04:29)
[2025-01-01] MEDS: cefTRIAXone 1GM/50ML D5W 50 ML IV ONE (04:54)
[2025-01-01 05:32] LABS: Basophils # (auto) 0 10 ^3/uL (0-0.2); Basophils % (auto) 0.4 % (0.0-2.0); Eosinophils # (auto) 0 10 ^3/uL (0-0.8); Eosinophils % (auto) 0.2 % (0.0-7.0); Hematocrit 50.5 % (41.0-53.0); Hemoglobin 17.3 g/dL (13.5-17.5); Lymphocytes # (auto) 0.2 10 ^3/uL (0.4-5.4); Lymphocytes % (auto) 2.7 % (10.0-50.0); Mean Corpuscular Hemoglobin 32.3 pg (28.0-32.0); Mean Corpuscular Hgb Conc. 34.3 g/dL (32.0-36.0); Mean Corpuscular Volume 94.1 fL (80.0-100.0); Monocytes # (auto) 0.4 10 ^3/uL (0-1.3); Monocytes % (auto) 4.3 % (0.0-12.0); Neutrophils # (auto) 7.7 10 ^3/uL (1.6-8.6); Neutrophils % (auto) 92.4 % (37.0-80.0); Platelet Count (auto) 182 10^3/uL (140-450); Red Blood Cells 5.37 10^6/uL (4.5-5.90); White Blood Cell 8.3 10^3/uL (4.4-10.8)
[2025-01-01] MEDS: metroNIDAZOLE 500MG/100ML 100 ML IV ONE (05:44)
[2025-01-01 05:50] LABS: Alanine Aminotransferase 22 U/L (7-40); Albumin 4.2 g/dL (3.2-4.8); Alkaline Phosphatase 101 U/L (46-116); Anion Gap 8 (5-15); BUN/Creatinine Ratio 24.7 (10.0-20.0); Bilirubin, Total 0.5 mg/dL (0.2-1.0); Blood Urea Nitrogen 20 mg/dL (9-23); Calcium 8.7 mg/dL (8.7-10.4); Carbon Dioxide 23 mmol/L (20-31); Potassium 3.8 mmol/L (3.5-5.1); Sodium 141 mmol/L (136-145); Total Protein 6.4 g/dL (5.7-8.2)
[2025-01-01 05:54] LABS: Aspartate Aminotransferase 10 U/L (13-40); Chloride 110 mmol/L (98-107); Glucose 134 mg/dL (74-106)
[2025-01-01] MEDS: SODIUM CHLOR 0.9% PF (SALINE LOCK) 10ML VIAL/SYR IV SCH (06:12)
--- NOTE | 2025-01-01 06:21 | DVH ---
EXAM: CT HEAD WITHOUT CONTRAST INDICATION: SYNCOPE TECHNIQUE: CT of the head without intravenous contrast. Radiation Dose : 1. Head: CT Dose: CTDI volume is 41 mGy. Dose-length product is 914 mGy*cm The dose indicators for CT are the volume Computed Tomography (CT) Dose Index (CTDIvol) and the Dose Length Product (DLP), and are measured in units of mGy and mGy-cm, respectively. These indicators are not patient dose, but values generated from the CT scanner acquisition factors. The report includes radiation exposure data for exposures received during this examination. COMPARISON: HEAD WITHOUT CONTRAST on DOS: 02/02/22 FINDINGS: TESTER [employer] P[employer]AGES shunt tract with encephalomalacia in the right frontal lobe. This may be related to prior shunt. There is no evidence of acute intracranial hemorrhage, extra-axial collection, mass effect, midline s hift, herniation or hydrocephalus. The ventricles, sulci and cisterns are age appropriate. Cavum septum pellucidum. The thomson-white differentiation is intact. The visualized paranasal sinuses and mastoid air cells are clear. The surrounding soft tissues and osseous structures are unremarkable. IMPRESSION: No acute intracranial abnormality. Radiation optimization: All CT scans at this facility use at least one of these dose optimization blake hniques: automated exposure control mA and/or kV adjustment per patient size (includes targeted exam s where dose is matched to clinical indication) or iterative reconstruction.
[2025-01-01] MEDS: THIAMINE 100mg/ml INJ (200mg/2ml VIAL) IV SCH (10:21)
[2025-01-01] MEDS: PANTOPRAZOLE 40 MG/10 ML VIAL INJ IV SCH (10:21)
[2025-01-01] MEDS: levETIRAcetam 500 mg/100ml 100 ML IV SCH (10:21)
[2025-01-01] MEDS: ENOXAPARIN SOD 40 MG/0.4 ML SYRINGE SC SCH (10:22)
[2025-01-01] MEDS: FOLIC ACID 1 MG in D5W 5% 50 ML INJ SCH (11:30)
[2025-01-01] MEDS: ACETAMINOPHEN 325 MG TAB PO PRN (13:38)
--- NOTE | 2025-01-01 14:01 | DVH ---
Carotid Duplex Date: 01/01/2025 10:38 AM Clinical History: SYNCOPE Comparison: None Technique: Duplex Doppler evaluation of the extracranial carotid and vertebral arteries including col or Doppler and spectral/pulsed waveform analysis was performed. Findings /impression: Incomplete nondiagnostic study due to patient's uncooperativeness. Only the bilateral common carotid arteries, bilateral external carotid arteries and left proximal cervical ICA velocities are obtained. Right common carotid artery 92 cm/sec with right ICA of 106 cm/sec. Left common carotid artery of 93 cm/sec with left ECA of 142 cm/sec. Left proximal ICA velocity of 75 cm/sec. Right ICA CCA ratio of 0.8. Repeat imaging is recommended.
[2025-01-01] MEDS: metroNIDAZOLE 500MG/100ML 100 ML IV SCH (14:11)
[2025-01-01] MEDS: IBUPROFEN 600 MG TAB PO PRN (14:41)
[2025-01-01] MEDS: FOLIC ACID 1 MG, MAGNESIUM SULF SDV 50% 8 MEQ, MULTIPLE VITAMIN 10 ML, THIAMINE INJ 100... INJ SCH (18:17)
[2025-01-01] MEDS ORDERED: QUET25TA37 PO (19:40)
--- NOTE | 2025-01-01 20:13 | DVHSR ---
APPROVED REPORT EXAM: Two-dimensional and M-mode echocardiogram with Doppler and color Doppler. Blood Pressure: 115/59 mmHg INDICATION Syncope DIMENSIONS LVDd (3.8-5.7cm)LA (2D)3.6 (1.9-4.0cm)Aortic Root3.9 (2.0-3.7cm) LVDs (2.5-4.0cm)LA (MM) (1.9-4.0cm)Aortic Cusp Exc2.1 (1.5-2.0cm) EF (%) 51.0 (55-70%)Rt. Atrium4.0 (1.9-4.0cm)Asc. Aorta cm Mitral Valve MitralMitral Stenosis E wave0.76m/sMV Mean GR.mmHg A wave0.88m/sMV Peak GR.mmHg E/A ratio0.92D MVAcm2 DECEL [id number] 1/2 Timems Aortic Valve Aortic ValveAortic Stenosis V11.28m/Gee Mean GR.4mmHg V21.42m/Gee Peak GR.8mmHg LVOT Diameter2.1 (1.8-2.4cm)Doppler AVA3.12cm2 Other Information Quality : Technically LimitedRhythm : Technically limited study due to body habitus, patient lying on right side and uncooperative. Conclusion Left ventricle: Left ventricular systolic function was hyperdynamic. The LVEF was more than 70%. T here was no gross wall motion abnormality. Right ventricle is normal in size with normal systolic function. Both atria were normal sized. Aortic valve was not well visualized. There was no aortic insufficiency/stenosis. There was trace m itral/tricuspid regurgitation. Pulmonary valve was not well visualized. As there was no good tricuspid regurgitation jet, right ventricular systolic pressure could not be es timated. There was no echocardiographic evidence for pulmonary hypertension. It was no pericardial effusion.
[2025-01-02] VITALS (7 sets, daily range): BP systolic 103–120; BP diastolic 60–80; PULSE 74–103; RESP 17–20; TEMP 98.4–99.6; O2SAT 0–95
[2025-01-02 07:24] LABS: Basophils # (auto) 0 10 ^3/uL (0-0.2); Basophils % (auto) 0.2 % (0.0-2.0); Eosinophils # (auto) 0.1 10 ^3/uL (0-0.8); Eosinophils % (auto) 0.8 % (0.0-7.0); Hematocrit 44.4 % (41.0-53.0); Hemoglobin 15.3 g/dL (13.5-17.5); Lymphocytes # (auto) 1.1 10 ^3/uL (0.4-5.4); Lymphocytes % (auto) 17.6 % (10.0-50.0); Mean Corpuscular Hemoglobin 32.6 pg (28.0-32.0); Mean Corpuscular Hgb Conc. 34.5 g/dL (32.0-36.0); Mean Corpuscular Volume 94.7 fL (80.0-100.0); Monocytes # (auto) 0.6 10 ^3/uL (0-1.3); Monocytes % (auto) 9.5 % (0.0-12.0); Neutrophils # (auto) 4.5 10 ^3/uL (1.6-8.6); Neutrophils % (auto) 71.9 % (37.0-80.0); Nucleated Red Blood Cells % 0.1 %; Platelet Count (auto) 149 10^3/uL (140-450); Red Blood Cells 4.69 10^6/uL (4.5-5.90); Red Cell Distribution Width 12.8 % (11.8-14.3); White Blood Cell 6.3 10^3/uL (4.4-10.8)
[2025-01-02 07:40] LABS: Alanine Aminotransferase 19 U/L (7-40); Alkaline Phosphatase 76 U/L (46-116); Anion Gap 6 (5-15); Carbon Dioxide 25 mmol/L (20-31); Glucose 100 mg/dL (74-106); Potassium 3.6 mmol/L (3.5-5.1); Sodium 140 mmol/L (136-145)
[2025-01-02 07:41] LABS: BUN/Creatinine Ratio 16.1 (10.0-20.0); Blood Urea Nitrogen 10 mg/dL (9-23)
[2025-01-02 07:42] LABS: Albumin 3.6 g/dL (3.2-4.8)
[2025-01-02 07:43] LABS: Bilirubin, Total 0.3 mg/dL (0.2-1.0)
[2025-01-02 07:48] LABS: Aspartate Aminotransferase 12 U/L (13-40); Calcium 8.2 mg/dL (8.7-10.4); Chloride 109 mmol/L (98-107); Total Protein 5.6 g/dL (5.7-8.2)
[2025-01-02] MEDS: cefTRIAXone 1GM/50ML D5W 50 ML IV SCH (11:17)
[2025-01-02] MEDS: MULTIPLE VITAMIN TAB PO ONE (12:31)
[2025-01-02] MEDS: THIAMINE HCL 100 MG TAB PO ONE (12:32)
[2025-01-02] MEDS: FOLIC ACID 1 MG TAB PO ONE (12:32)
[2025-01-02] MEDS: MAGNESIUM OXIDE 400 MG TAB PO ONE (12:32)
--- NOTE | 2025-01-02 16:18 | DVHDS2 ---
Discharge Summary Date of Admission January 01, 2025 at 03:11 Date of Discharge: January 02, 2025 Labs/Diagnostic Data: Laboratory Results Test 01/02/25 05:28 01/01/25 08:54 01/01/25 05:04 01/01/25 02:19 White Blood Count 6.3 10^3/uL (4.4-10.8) Red Blood Count 4.69 10^6/uL (4.5-5.90) Hemoglobin 15.3 g/dL (13.5-17.5) Hematocrit 44.4 % (41.0-53.0) Mean Corpuscular Volume 94.7 fL (80.0-100.0) Mean Corpuscular Hemoglobin 32.6 pg (28.0-32.0) Mean Corpuscular Hemoglobin Concent 34.5 g/dL (32.0-36.0) Red Cell Distribution Width 12.8 % (11.8-14.3) Platelet Count 149 10^3/uL (140-450) Mean Platelet Volume 7.9 fL (6.9-10.8) Neutrophils (%) (Auto) 71.9 % (37.0-80.0) Lymphocytes (%) (Auto) 17.6 % (10.0-50.0) Monocytes (%) (Auto) 9.5 % (0.0-12.0) Eosinophils (%) (Auto) 0.8 % (0.0-7.0) Basophils (%) (Auto) 0.2 % (0.0-2.0) Neutrophils # (Auto) 4.5 10 ^3/uL (1.6-8.6) Lymphocytes # (Auto) 1.1 10 ^3/uL (0.4-5.4) Monocytes # (Auto) 0.6 10 ^3/uL (0-1.3) Eosinophils # (Auto) 0.1 10 ^3/uL (0-0.8) Basophils # (Auto) 0 10 ^3/uL (0-0.2) Nucleated Red Blood Cells 0.1 % Sodium Level 140 mmol/L (136-145) Potassium Level 3.6 mmol/L (3.5-5.1) Chloride Level 109 mmol/L (98-107) Carbon Dioxide Level 25 mmol/L (20-31) Anion Gap 6 (5-15) Blood Urea Nitrogen 10 mg/dL (9-23) Creatinine 0.62 mg/dL (0.700-1.30) Glomerular Filtration Rate Calc 130 mL/min (>90) BUN/Creatinine Ratio 16.1 (10.0-20.0) Serum Glucose 100 mg/dL (74-106) Calcium Level 8.2 mg/dL (8.7-10.4) Total Bilirubin 0.3 mg/dL (0.2-1.0) Aspartate Amino Transferase (AST) 12 U/L (13-40) Alanine Aminotransferase (ALT) 19 U/L (7-40) Alkaline Phosphatase 76 U/L (46-116) Total Protein 5.6 g/dL (5.7-8.2) Albumin 3.6 g/dL (3.2-4.8) Stool for White Cells None seen Lactic Acid Level 1.6 mmol/L (0.4-2.0) Thyroid Stimulating Hormone (TSH) 1.34 uIU/mL (0.55-4.78) Plasma/Serum Blood Alcohol < 3.0 mg/dL (<10) Influenza Type A Antigen Negative (Negative) Influenza Type B Antigen Negative (Negative) Test 01/01/25 01:32 01/01/25 00:11 SARS-CoV-2 Antigen (Rapid) Negative (NEGATIVE) POC Glucose 159 mg/dl (70-106) Other Laboratory Tests 01/02/25 05:28 Brief Hx & Hospital Course: 74-year-old male with with a known history of seizure disorder currently on Keppra, initially present with the hospital with a near-syncope as he fell off his he has chair. Patient was found to have nausea vomiting diarrhea and fever. C diff is negative shiga toxin one and two are negative. Patient's diarrhea has been resolved. Patient is currently tolerating diet. Patient denies any symptoms currently requesting to go back to board and care. Patient's blood cultures are negative to date. Patient was being discharged under stable condition. Condition at Discharge: Stable Final Diagnosis/Problems List 1.Syncope suspect orthostatic no evidence of any cardiac arrhythmia 2. Acute gastroenteritis, resolved 3. Chronic marijuana use 4. Intractable nausea vomiting resolved 5. Diarrhea ruled out C diff currently patient has normal bowel movements 6. Seizure disorder no evidence of seizures while in the hospital 7. Leukocytosis likely reactive secondary to viral gastroenteritis resolved Discharge Disposition: Assisted Living Facility SNF Discharge Will this Physician continue t: No Discharge Instruct/Medications Diet: Cardiac 2g Na,low cholest Activity: No Restrictions, As Tolerated Follow Up/Referral: Please follow up with the PCP in one week Medications: Resume home Discharge Statement: "Patient was advised to return to the ER or call 911 if any headaches, dizziness, shortness of breath, chest pain, abdominal pain, bleeding, fevers, or worsening of medical condition. Patient was counseled about treatment plan, medications, possible side effects, patientverbalized understanding. All questions were answered to the best of my ability. This discharge took greater then 30 minutes in planning, reviewing documentation, counseling the patient, and discussing with other team members." ASSESSMENT ASSESSMENT Assessment Syncope suspect orthostatic no evidence of any cardiac arrhythmia 2. Acute gastroenteritis, resolved 3. Chronic marijuana use 4. Intractable nausea vomiting resolved 5. Diarrhea ruled out C diff currently patient has normal bowel movements 6. Seizure disorder no evidence of seizures while in the hospital 7. Leukocytosis likely reactive secondary to viral gastroenteritis resolved Date of Service: January 02, 2025 Billing Provider: ABRAHAM SUBRAMANIAN MD Common Visit Codes: [id number] DISCH DAY >30min ABRAHAM SUBRAMANIAN MD January 02, 2025 16:18
[2025-01-02] MEDS: ACETAMINOPHEN 325 MG TAB PO PRN (20:37)
[2025-01-02] MEDS: MELATONIN 5 MG TAB PO ONE (20:37)
--- NOTE | 2025-01-02 22:11 | DVHINCON2 ---
Date of service: January 02, [address] Flores Reason for Consultation Diarrhoea History of Present Illness Patient started 34 years old male with a history of seizure disorder, depression was brought in from a nursing home facility due to syncope Patient denied to give a detailed history, patient was noncompliant with giving a details history.. Per patient he had nausea and vomiting for the day so many times, watery, no blood. Patient also endorsed diarrhea several times, watery no blood. Patient also reported that when he tried to get up from his wheelchair he passed out, patient had post syncope fecal incontinence. Initial lab workup revealed leukocytosis with WBC is 12.1, neutrophils 93.6%, hemoglobin 8.9. Patient stated today that he is feeling much better. 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 Social History Past Social History Smoker/occasional alcoholic, use marijuana Allergies: Coded Allergies: NO KNOWN ALLERGIES (Unverified , 02/02/22) Home Meds Active Scripts Levetiracetam (KEPPRA TABLET) 500 Mg Tb, 500 MG PO BID for 60 Days, #120 TAB Prov:HARDIK ABDIP 11/11/22 Levetiracetam (Keppra) 500 Mg Tab, 1 TAB PO BID, #120 TAB Prov:THALIA BARONE PAC 08/07/22 Levetiracetam (KEPPRA TABLET) 500 Mg Tb, 500 MG PO BID for 30 Days, #60 TAB Prov:LOIDA ADAMS MD 05/06/22 Levetiracetam (KEPPRA TABLET) 500 Mg Tb, 500 MG PO BID for 30 Days, #60 TAB 0 Refills Prov:PRADIP CORBETT 04/01/22 Levetiracetam (KEPPRA TABLET) 500 Mg Tb, 500 MG PO BID for 30 Days, #60 TAB Prov:YARI DYER MD 02/03/22 Current Medications Current Medications Medications (Trade) Dose Ordered Sig/Howard Route PRN Reason Start Time Stop Time Status Last Admin Ceftriaxone Sodium 50 ml @ 100 mls/hr DAILY@09 IV 01/02/25 09:00 01/02/25 11:17 Folic Acid 1 mg DAILY PO 01/03/25 10:00 Multivitamins (Mvi Tab) 1 tab DAILY PO 01/03/25 10:00 Magnesium Oxide (Mag-Ox Tablet) 400 mg DAILY PO 01/03/25 10:00 Thiamine HCl 100 mg DAILY PO 01/03/25 10:00 Vital Signs Vital Signs Date Time Temp Pulse Resp B/P (MAP) Pulse Ox O2 Delivery O2 Flow Rate FiO2 01/02/25 21:00 98.8 91 20 103/62 (76) 94 98.8 01/02/25 08:00 Room Air* 0 21 Physical Exam General Appearance: No Distress Normal HEENT: Normal ENT Inspection, Pharynx Normal, TMs Normal Neck: Full Range of Motion, Non-Tender, Normal, Normal Inspection Respiratory: Chest Non-Tender, Lungs Clear, No Accessory Muscle Use, No Respiratory Distress, Normal Breath Sounds Cardiovascular: No Edema, No JVD, No Murmur, No Gallop, Normal Peripheral Pulses, Regular Rate/Rhythm Gastrointestinal: No Organomegaly, Non Tender, No Pulsatile Mass, Normal Bowel Sounds, Soft Extremities: Other (Right leg [id number] amputation.) Neurologic: Alert, Normal Affect, No Sensory Deficits Labs/Diagnostic Data Labs Test 01/02/25 05:28 01/01/25 08:54 01/01/25 05:04 01/01/25 02:19 Range/Units White Blood Count 6.3 4.4-10.8 10^3/uL Red Blood Count 4.69 4.5-5.90 10^6/uL Hemoglobin 15.3 13.5-17.5 g/dL Hematocrit 44.4 # 41.0-53.0 % Mean Corpuscular Volume 94.7 80.0-100.0 fL Mean Corpuscular Hemoglobin 32.6 H 28.0-32.0 pg Mean Corpuscular Hemoglobin Concent 34.5 32.0-36.0 g/dL Red Cell Distribution Width 12.8 11.8-14.3 % Platelet Count 149 140-450 10^3/uL Mean Platelet Volume 7.9 6.9-10.8 fL Neutrophils (%) (Auto) 71.9 37.0-80.0 % Lymphocytes (%) (Auto) 17.6 10.0-50.0 % Monocytes (%) (Auto) 9.5 0.0-12.0 % Eosinophils (%) (Auto) 0.8 0.0-7.0 % Basophils (%) (Auto) 0.2 0.0-2.0 % Neutrophils # (Auto) 4.5 1.6-8.6 10 ^3/uL Lymphocytes # (Auto) 1.1 0.4-5.4 10 ^3/uL Monocytes # (Auto) 0.6 0-1.3 10 ^3/uL Eosinophils # (Auto) 0.1 0-0.8 10 ^3/uL Basophils # (Auto) 0 0-0.2 10 ^3/uL Nucleated Red Blood Cells 0.1 % Sodium Level 140 136-145 mmol/L Potassium Level 3.6 3.5-5.1 mmol/L Chloride Level 109 H 98-107 mmol/L Carbon Dioxide Level 25 20-31 mmol/L Anion Gap 6 5-15 Blood Urea Nitrogen 10 # 9-23 mg/dL Creatinine 0.62 L 0.700-1.30 mg/dL Glomerular Filtration Rate Calc 130 >90 mL/min BUN/Creatinine Ratio 16.1 10.0-20.0 Serum Glucose 100 74-106 mg/dL Calcium Level 8.2 L 8.7-10.4 mg/dL Total Bilirubin 0.3 0.2-1.0 mg/dL Aspartate Amino Transferase (AST) 12 L 13-40 U/L Alanine Aminotransferase (ALT) 19 7-40 U/L Alkaline Phosphatase 76 46-116 U/L Total Protein 5.6 L 5.7-8.2 g/dL Albumin 3.6 3.2-4.8 g/dL Stool for White Cells None seen Lactic Acid Level 1.6 0.4-2.0 mmol/L Thyroid Stimulating Hormone (TSH) 1.34 0.55-4.78 uIU/mL Plasma/Serum Blood Alcohol < 3.0 <10 mg/dL Influenza Type A Antigen Negative Negative Influenza Type B Antigen Negative Negative Test 01/01/25 01:32 01/01/25 00:11 Range/Units SARS-CoV-2 Antigen (Rapid) Negative NEGATIVE POC Glucose 159 H 70-106 mg/dl Microbiology Date/Time Source Procedure Growth Status 01/01/25 16:05 Nose MRSA Screen - Final Complete 01/01/25 14:35 Blood Blood Culture - Preliminary NO GROWTH AFTER 24 HOURS OF INCUBATION. Resulted 01/01/25 08:54 Stool Stool Culture - Preliminary Resulted 01/01/25 08:54 Stool Shiga Toxin I & II - Final Resulted Head CT negative Problems(with codes): (1) Leukocytosis (2) Gastroenteritis (3) Fecal incontinence Plan/Recommendation Assessment plan Patient appears to have acute gastroenteritis probably viral or food toxin mediated These symptoms appeared to have resolved and patient is stable Advance diet as tolerated Continue supportive care Discharge planning is in progress Outpatient follow up with GI Services if he has any ongoing GI issues Once again thank you for allowing me to participate in the care of this patient Plan discussed with: Patient, Other (Nurse) LETI ZAMBRANO MD January 02, 2025 22:11
[2025-01-03 01:00] VITALS: BP 98/69; PULSE 71; RESP 20; TEMP 98.2; O2SAT 95
[2025-01-03 05:00] VITALS: BP 98/59; PULSE 82; RESP 19; TEMP 98.4; O2SAT 95
[2025-01-03 08:00] VITALS: PULSE 74; RESP 18; O2SAT 95
[2025-01-03 09:00] VITALS: BP 130/65; PULSE 74; RESP 18; TEMP 98.3; O2SAT 95
[2025-01-03] MEDS: MULTIPLE VITAMIN TAB PO SCH (09:18)
[2025-01-03] MEDS: THIAMINE HCL 100 MG TAB PO SCH (09:18)
[2025-01-03] MEDS: MAGNESIUM OXIDE 400 MG TAB PO SCH (09:19)
[2025-01-03] MEDS: FOLIC ACID 1 MG TAB PO SCH (09:19)
--- NOTE | 2025-01-03 15:53 | DVHPN2 ---
Subjective Overnight events noted. 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 Medications Current Medications Medications Dose Ordered Sig/Howard Route Start Time Stop Time Status Last Admin Dose Admin Sodium Chloride 10 ml Q8HR IV 01/01/25 06:00 01/03/25 14:30 10 ML Ondansetron HCl 4 mg Q4HP PRN IV 01/01/25 03:15 Enoxaparin Sodium 40 mg DAILY SC 01/01/25 10:00 01/02/25 11:18 40 MG Ceftriaxone Sodium 50 ml @ 100 mls/hr DAILY@09 IV 01/02/25 09:00 01/03/25 09:15 100 MLS/HR Metronidazole 100 ml @ 100 mls/hr Q8HR IV 01/01/25 14:00 01/03/25 14:30 100 MLS/HR Pantoprazole Sodium 40 mg DAILY IV 01/01/25 10:00 01/03/25 09:18 40 MG Levetiracetam 100 ml @ 400 mls/hr BID IV 01/01/25 10:00 01/03/25 09:19 400 MLS/HR Sodium Chloride 1,000 ml @ 125 mls/hr Q8H IV 01/01/25 03:30 01/03/25 14:31 125 MLS/HR Ibuprofen 600 mg Q6HP PRN PO 01/01/25 14:30 01/01/25 14:41 600 MG Acetaminophen 650 mg Q6HP PRN PO 01/01/25 14:45 01/02/25 20:37 650 MG Folic Acid 1 mg DAILY PO 01/03/25 10:00 01/03/25 09:19 1 MG Multivitamins 1 tab DAILY PO 01/03/25 10:00 01/03/25 09:18 1 TAB Magnesium Oxide 400 mg DAILY PO 01/03/25 10:00 01/03/25 09:19 400 MG Thiamine HCl 100 mg DAILY PO 01/03/25 10:00 01/03/25 09:18 100 MG Laboratory Results Laboratory Tests 01/02/25 05:28 Microbiology Microbiology Date/Time Source Procedure Growth Status 01/01/25 16:05 Nose MRSA Screen - Final Complete 01/01/25 14:35 Blood Blood Culture - Preliminary NO GROWTH AFTER 48 HOURS OF INCUBATION. Resulted 01/01/25 08:54 Stool Stool Culture - Preliminary Resulted 01/01/25 08:54 Stool Shiga Toxin I & II - Final Resulted Assessment/Plan Assessment/Plan 1.Syncope suspect orthostatic no evidence of any cardiac arrhythmia 2. Acute gastroenteritis, resolved 3. Chronic marijuana use 4. Intractable nausea vomiting resolved 5. Diarrhea ruled out C diff currently patient has normal bowel movements 6. Seizure disorder no evidence of seizures while in the hospital 7. Leukocytosis likely reactive secondary to viral gastroenteritis resolved -hospital social worker consultation for voiding care. Patient does not know which voiding care he came from. Plan discussed with: Patient, Other My Orders Orders - ABRAHAM SUBRAMANIAN MD Procedure Category Date Status Time Discharge DISCHARGE 01/02/25 Transmitted 16:14 Communication Order ORDERS 01/02/25 Transmitted 17:55 Date of Service: January 02, 2025 Billing Provider: ABRAHAM SUBRAMANIAN MD Common Visit Codes: [id number] INP/OBS CARE(MOD) ABRAHAM SUBRAMANIAN MD January 03, 2025 15:53
--- NOTE | 2025-01-03 15:54 | DVHPN2 ---
Subjective Overnight events noted. 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 Medications Current Medications Medications Dose Ordered Sig/Howard Route Start Time Stop Time Status Last Admin Dose Admin Sodium Chloride 10 ml Q8HR IV 01/01/25 06:00 01/03/25 14:30 10 ML Ondansetron HCl 4 mg Q4HP PRN IV 01/01/25 03:15 Enoxaparin Sodium 40 mg DAILY SC 01/01/25 10:00 01/02/25 11:18 40 MG Ceftriaxone Sodium 50 ml @ 100 mls/hr DAILY@09 IV 01/02/25 09:00 01/03/25 09:15 100 MLS/HR Metronidazole 100 ml @ 100 mls/hr Q8HR IV 01/01/25 14:00 01/03/25 14:30 100 MLS/HR Pantoprazole Sodium 40 mg DAILY IV 01/01/25 10:00 01/03/25 09:18 40 MG Levetiracetam 100 ml @ 400 mls/hr BID IV 01/01/25 10:00 01/03/25 09:19 400 MLS/HR Sodium Chloride 1,000 ml @ 125 mls/hr Q8H IV 01/01/25 03:30 01/03/25 14:31 125 MLS/HR Ibuprofen 600 mg Q6HP PRN PO 01/01/25 14:30 01/01/25 14:41 600 MG Acetaminophen 650 mg Q6HP PRN PO 01/01/25 14:45 01/02/25 20:37 650 MG Folic Acid 1 mg DAILY PO 01/03/25 10:00 01/03/25 09:19 1 MG Multivitamins 1 tab DAILY PO 01/03/25 10:00 01/03/25 09:18 1 TAB Magnesium Oxide 400 mg DAILY PO 01/03/25 10:00 01/03/25 09:19 400 MG Thiamine HCl 100 mg DAILY PO 01/03/25 10:00 01/03/25 09:18 100 MG Laboratory Results Laboratory Tests 01/02/25 05:28 Microbiology Microbiology Date/Time Source Procedure Growth Status 01/01/25 16:05 Nose MRSA Screen - Final Complete 01/01/25 14:35 Blood Blood Culture - Preliminary NO GROWTH AFTER 48 HOURS OF INCUBATION. Resulted 01/01/25 08:54 Stool Stool Culture - Preliminary Resulted 01/01/25 08:54 Stool Shiga Toxin I & II - Final Resulted Assessment/Plan Assessment/Plan 1.Syncope suspect orthostatic no evidence of any cardiac arrhythmia 2. Acute gastroenteritis, resolved 3. Chronic marijuana use 4. Intractable nausea vomiting resolved 5. Diarrhea ruled out C diff currently patient has normal bowel movements 6. Seizure disorder no evidence of seizures while in the hospital 7. Leukocytosis likely reactive secondary to viral gastroenteritis resolved -social scientist consultation for voiding care. Patient does not know which voiding care he came from. Plan discussed with: Other My Orders Orders - ABRAHAM SUBRAMANIAN MD Procedure Category Date Status Time Discharge DISCHARGE 01/02/25 Transmitted 16:14 Communication Order ORDERS 01/02/25 Transmitted 17:55 Date of Service: January 03, 2025 Billing Provider: ABRAHAM SUBRAMANIAN MD Common Visit Codes: [id number] INP/OBS CARE(MOD) ABRAHAM SUBRAMANIAN MD January 03, 2025 15:54
[2025-01-03 17:06] VITALS: BP 108/76; PULSE 72; RESP 18; TEMP 98.4; O2SAT 95
--- NOTE | 2025-01-03 20:33 | DVHPN2 ---
Progress Note - Dictate Date Seen: January 03, 2025 Medical Necessity Reason Pt with a Central, PICC or Fol: No Subjective No further episodes of diarrhea Patient states he has more anxiety and agitation He is concerned about getting in touch with the jail and he came from vital signs Vital Sign Date Time Temp Pulse Resp B/P (MAP) Pulse Ox O2 Delivery O2 Flow Rate FiO2 01/03/25 20:00 Room Air* 0 21 01/03/25 17:06 98.4 72 18 108/76 (87) 95 98.4 Total Intake and Output 01/02/25 01/02/25 01/03/25 15:00 23:00 07:00 Intake Total 490 ml 1681 ml 850 ml Output Total 450 ml 900 ml 300 ml Balance 40 ml 781 ml 550 ml medications Current Medications Medications Dose Ordered Sig/Howard Route Start Time Stop Time Status Last Admin Dose Admin Sodium Chloride 10 ml Q8HR IV 01/01/25 06:00 01/03/25 14:30 10 ML Ondansetron HCl 4 mg Q4HP PRN IV 01/01/25 03:15 Enoxaparin Sodium 40 mg DAILY SC 01/01/25 10:00 01/02/25 11:18 40 MG Ceftriaxone Sodium 50 ml @ 100 mls/hr DAILY@09 IV 01/02/25 09:00 01/03/25 09:15 100 MLS/HR Metronidazole 100 ml @ 100 mls/hr Q8HR IV 01/01/25 14:00 01/03/25 14:30 100 MLS/HR Pantoprazole Sodium 40 mg DAILY IV 01/01/25 10:00 01/03/25 09:18 40 MG Levetiracetam 100 ml @ 400 mls/hr BID IV 01/01/25 10:00 01/03/25 09:19 400 MLS/HR Sodium Chloride 1,000 ml @ 125 mls/hr Q8H IV 01/01/25 03:30 01/03/25 20:14 125 MLS/HR Ibuprofen 600 mg Q6HP PRN PO 01/01/25 14:30 01/01/25 14:41 600 MG Acetaminophen 650 mg Q6HP PRN PO 01/01/25 14:45 01/02/25 20:37 650 MG Folic Acid 1 mg DAILY PO 01/03/25 10:00 01/03/25 09:19 1 MG Multivitamins 1 tab DAILY PO 01/03/25 10:00 01/03/25 09:18 1 TAB Magnesium Oxide 400 mg DAILY PO 01/03/25 10:00 01/03/25 09:19 400 MG Thiamine HCl 100 mg DAILY PO 01/03/25 10:00 01/03/25 09:18 100 MG objective HEENT pupils are reactive Neck is supple CV is S1-S2 regular rate and rhythm Respiratory diminished breath sounds bases GI positive bowel sound 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
[2025-01-03 21:00] VITALS: BP 132/59; PULSE 72; RESP 20; TEMP 97.5; O2SAT 97
[2025-01-04 01:00] VITALS: BP 105/67; PULSE 72; RESP 20; TEMP 97.1; O2SAT 97
[2025-01-04 05:00] VITALS: BP 106/71; PULSE 69; RESP 20; TEMP 97.3; O2SAT 96
[2025-01-04 08:00] VITALS: PULSE 74; RESP 17; O2SAT 95
[2025-01-04 09:00] VITALS: BP 112/73; PULSE 74; RESP 17; TEMP 98.2; O2SAT 95
[2025-01-04 11:33] VITALS: BP 112/73; PULSE 74; RESP 17; TEMP 98.2; O2SAT 95
[2025-01-04 13:00] VITALS: BP 121/83; PULSE 70; RESP 16; TEMP 98.5; O2SAT 97
== END 2025-01-04 14:20 | disposition home or self-care (01) | DRG 392 ==
LOC: ER 23:52 → EDBD 23:52 → EDUNIT# 23:52 → OVERFLOW 01-01 03:11 → TELE-EAST 01-01 03:13
PROVIDERS: ADMIT Internal Medicine; ATTEND Internal Medicine
DX: A08.4 Viral intestinal infection, unspecified (principal); F12.10 Cannabis abuse, uncomplicated; G40.909 Epilepsy, unspecified, not intractable, without status epilepticus; D72.829 Elevated white blood cell count, unspecified; F17.210 Nicotine dependence, cigarettes, uncomplicated; F10.20 Alcohol dependence, uncomplicated; R15.9 Full incontinence of feces; F41.9 Anxiety disorder, unspecified; Z91.199 Patient's noncompliance with other medical treatment and regimen due to unspecified reason; Z79.899 Other long term (current) drug therapy
CPT/HCPCS: 36415; 70450; 80048; 80053; 80320; 82962; 83605; 84443; 85025; 85048; 87040; 87045; 87081; 87426; 87427; 87493; 87804; 93306; 93886; G0378; J2470; J3490; J7060